=== PATIENT | female | born 1980 | race Caucasian/White ===

== ENCOUNTER 2020-07-01 17:53 | Emergency (ER) | payer SELFPAY ==
[2020-07-01] MEDS ORDERED: Thiamine 200 MG/2 ML MDV IVPUSH ONE (18:14)
[2020-07-01] MEDS ORDERED: Lactated Ringers 1,000 ML IV ONE (18:15)
[2020-07-01] MEDS ORDERED: Ondansetron 4 MG/2 ML SDV IVPUSH ONE (18:15)
--- NOTE | 2020-07-01 18:56 | EDM.PDOC ---
<Frandy Aleman - Last Filed: 07/01/20 18:48> ED HPI GENERAL MEDICAL PROBLEM - General Chief Complaint: Behavioral/Psych Stated Complaint: [facility] Time Seen by Provider: 07/01/20 18:48 - History of Present Illness INITIAL COMMENTS - FREE TEXT/NARRATIVE: 39-year-old female brought in by [facility]. The call was initially for an unresponsive female but she became more responsive but still somewhat confused when EMS arrived she smells grossly of EtOH. Patient admits to drinking quite a bit yesterday. Patient hurts all over. She is got open sores in her axilla and her groin and under her breasts. She has had surgery for these in the past secondary to infections. Patient really will not give much more of a history however she denies being . And she denies using any recreational drugs, however she says she wish she had. - Related Data Allergies Allergy/AdvReac Type Severity Reaction Status Date / Time No Known Allergies Allergy Verified 07/01/20 19:00 Past Medical History - Past Health History Medical/Surgical History: Denies Medical/Surgical History ED ROS GENERAL - Review of Systems Review Of Systems: See Below Reason Not Obtained: She is quite intoxicated and will not answer questions clearly Constitutional: Denies: Fever, Chills ED EXAM, GENERAL - Physical Exam Exam: See Below Exam Limited By: Intoxication General Appearance: No Apparent Distress, Lethargic Eye Exam: Bilateral Eye: Other (Sclera mildly injected otherwise no abnormalities) Ears: Normal External Exam, Normal Canal, Hearing Grossly Normal, Normal TMs, Other (Nonobstructing cerumen noted in the external canals) Nose: Normal Inspection, Normal Mucosa, No Blood Throat/Mouth: Other (Dry mucosa) Head: Atraumatic, Normocephalic, Other (Skin changes consistent with rosacea) Neck: Normal Inspection, Supple, Non-Tender, Full Range of Motion. No: Lymphadenopathy (L), Lymphadenopathy (R) Respiratory/Chest: No Respiratory Distress, Lungs Clear Cardiovascular: Regular Rate, Rhythm, No Edema, No Murmur GI/Abdominal: Normal Bowel Sounds, Soft, Other (Apparent tenderness with palpation nothing worsened with palpation no rebound or guarding) (Female) Exam: Other (Skin changes consistent with a varying degree of folliculitis) Back Exam: No: CVA Tenderness (L), CVA Tenderness (R) Extremities: No Pedal Edema Neurological: Other (Intoxicated or otherwise under the influence of something) Skin Exam: Other (She has multiple areas in the groin that look like folliculitis. Under the breast she has open wounds down to the adipose tissue. These are again seen in the axilla with significant scar tissue.) Course - Re-Assessments/Exams Free Text/Narrative Re-Assessment/Exam: 07/01/20 19:12 Labs and x-ray ordered results pending at this point change of shift further care and disposition per Dr. Gunderson Departure - Departure Disposition: Home, Self-Care 01 Clinical Impression: Alcohol intoxication - Discharge Information Referrals: PCP,Unknown [Ordering Only Provider] - Forms: ED Department Discharge Additional Instructions: You were brought to the ED by EMS after passing out. Work-up in the ER included several blood tests, 2 sets of blood cultures, a urinalysis, a urine test, a urine drug screen, a swab for the SA RS-CoV-2 virus, and a chest x-ray. Your work-up found your alcohol level to be substantially elevated at 0.39. For reference, that is almost 5 times the upper legal limit for driving. We strongly recommend that you abstain from alcohol. If you have difficulty in doing so, we recommend that you seek professional help. If any other problems, please do not hesitate to return to the ER. Sepsis Event Note (ED) - Evaluation Sepsis Screening Result: No Definite Risk <Omar Gunderson - Last Filed: 07/02/20 06:40> Course - Vital Signs Last Recorded V/S: Last Vital Signs Temp 36.4 C 07/01/20 18:02 Pulse 80 07/02/20 02:35 Resp 18 07/01/20 18:02 BP 124/76 07/01/20 18:02 Pulse Ox 97 07/02/20 02:35 - Orders/Labs/Meds Orders: Active Orders 24 hr Category Date Time Status Chest 1V Frontal [CR] Stat Exams 07/01/20 18:07 Taken CULTURE BLOOD [BC] Stat Lab 07/01/20 18:30 Received CULTURE BLOOD [BC] Stat Lab 07/01/20 18:45 Received Blood Culture x2 Reflex Set [OM.PC] Stat Oth 07/01/20 18:07 Ordered Labs: Laboratory Tests 07/01/20 07/01/20 07/01/20 Range/Units 18:30 18:30 18:30 WBC 12.01 H (3.98-10.04) K/mm3 RBC 4.88 (3.98-5.22) M/mm3 Hgb 13.2 (11.2-15.7) gm/dl Hct 40.8 (34.1-44.9) % MCV 83.6 (79.4-94.8) fl MCH 27.0 (25.6-32.2) pg MCHC 32.4 (32.2-35.5) g/dl RDW Std Deviation 44.4 (36.4-46.3) fL Plt Count 396 H (182-369) K/mm3 MPV 8.4 L (9.4-12.3) fl Neut % (Auto) 76.6 H (34.0-71.1) % Lymph % (Auto) 16.8 L (19.3-51.7) % [place] % (Auto) 6.0 (4.7-12.5) % Eos % (Auto) 0.2 L (0.7-5.8) Baso % (Auto) 0.2 (0.1-1.2) % Neut # (Auto) 9.20 H (1.56-6.13) K/mm3 Lymph # (Auto) 2.02 (1.18-3.74) K/mm3 [place] # (Auto) 0.72 H (0.24-0.36) K/mm3 Eos # (Auto) 0.03 L (0.04-0.36) K/mm3 Baso # (Auto) 0.02 (0.01-0.08) K/mm3 Manual Slide Review Abnormal smear Sodium 146 H (136-145) mEq/L Potassium 3.9 (3.5-5.1) mEq/L Chloride 110 H (98-107) mEq/L Carbon Dioxide 22 (21-32) mEq/L Anion Gap 17.9 H (5-15) BUN 9 (7-18) mg/dL Creatinine 1.1 H (0.55-1.02) mg/dL Est Cr Clr Drug Dosing 67.89 mL/min Estimated GFR (MDRD) 55 (>60) mL/min BUN/Creatinine Ratio 8.2 L (14-18) Glucose 97 (74-106) mg/dL Lactic Acid 4.4 H* (0.4-2.0) mmol/L Calcium 8.5 (8.5-10.1) mg/dL Total Bilirubin 0.2 (0.2-1.0) mg/dL AST 21 (15-37) U/L ALT 24 (14-59) U/L Alkaline Phosphatase 49 (46-116) U/L Troponin I < 0.017 (0.00-0.056) ng/mL Total Protein 8.1 (6.4-8.2) g/dl Albumin 3.3 L (3.4-5.0) g/dl Globulin 4.8 gm/dL Albumin/Globulin Ratio 0.7 L (1-2) Urine Color (Yellow) Urine Appearance (Clear) Urine pH (5.0-8.0) Ur Specific Castor (1.005-1.030) Urine Protein (Negative) Urine Glucose (UA) (Negative) Urine Ketones (Negative) Urine Occult Blood (Negative) Urine Nitrite (Negative) Urine Bilirubin (Negative) Urine Urobilinogen (0.2-1.0) Ur Leukocyte Esterase (Negative) Urine RBC (0-5) /hpf Urine WBC (0-5) /hpf Ur Squamous Epith Cells (0-5) /hpf Urine Bacteria (FEW) /hpf Urine Mucus (FEW) /hpf Urine HCG, Qual (NEGATIVE) Urine Opiates Screen (IWEPZU=902) Ur Buprenorphine Scrn (CUTOFF=10) Ur Oxycodone Screen (NKB4PP=909) Urine Methadone Screen (YDXVPC=748) Ur Propoxyphene Screen (ZVQKDZ=371) Ur Barbiturates Screen (VAEZUQ=091) Ur Tricyclics Screen (GZXKJO=975) Ur Phencyclidine Scrn (CUTOFF=25) Ur Amphetamine Screen (DLCOOS=606) U Methamphetamines Scrn (UIZFWE=393) U Benzodiazepines Scrn (PQQCPZ=354) U Cocaine Metab Screen (MPSIKV=577) U Marijuana (THC) Screen (CUTOFF=50) Ethyl Alcohol 0.39 (0.00) gm% SARS-CoV-2 RNA (BRENT) (NEGATIVE) 07/01/20 07/01/20 07/01/20 Range/Units 18:50 18:50 18:50 WBC (3.98-10.04) K/mm3 RBC (3.98-5.22) M/mm3 Hgb (11.2-15.7) gm/dl Hct (34.1-44.9) % MCV (79.4-94.8) fl MCH (25.6-32.2) pg MCHC (32.2-35.5) g/dl RDW Std Deviation (36.4-46.3) fL Plt Count (182-369) K/mm3 MPV (9.4-12.3) fl Neut % (Auto) (34.0-71.1) % Lymph % (Auto) (19.3-51.7) % [place] % (Auto) (4.7-12.5) % Eos % (Auto) (0.7-5.8) Baso % (Auto) (0.1-1.2) % Neut # (Auto) (1.56-6.13) K/mm3 Lymph # (Auto) (1.18-3.74) K/mm3 [place] # (Auto) (0.24-0.36) K/mm3 Eos # (Auto) (0.04-0.36) K/mm3 Baso # (Auto) (0.01-0.08) K/mm3 Manual Slide Review Sodium (136-145) mEq/L Potassium (3.5-5.1) mEq/L Chloride (98-107) mEq/L Carbon Dioxide (21-32) mEq/L Anion Gap (5-15) BUN (7-18) mg/dL Creatinine (0.55-1.02) mg/dL Est Cr Clr Drug Dosing mL/min Estimated GFR (MDRD) (>60) mL/min BUN/Creatinine Ratio (14-18) Glucose (74-106) mg/dL Lactic Acid (0.4-2.0) mmol/L Calcium (8.5-10.1) mg/dL Total Bilirubin (0.2-1.0) mg/dL AST (15-37) U/L ALT (14-59) U/L Alkaline Phosphatase (46-116) U/L Troponin I (0.00-0.056) ng/mL Total Protein (6.4-8.2) g/dl Albumin (3.4-5.0) g/dl Globulin gm/dL Albumin/Globulin Ratio (1-2) Urine Color Yellow (Yellow) Urine Appearance Clear (Clear) Urine pH 6.0 (5.0-8.0) Ur Specific Castor 1.015 (1.005-1.030) Urine Protein Negative (Negative) Urine Glucose (UA) Negative (Negative) Urine Ketones Negative (Negative) Urine Occult Blood 1+ H (Negative) Urine Nitrite Negative (Negative) Urine Bilirubin Negative (Negative) Urine Urobilinogen 0.2 (0.2-1.0) Ur Leukocyte Esterase Negative (Negative) Urine RBC 0-5 (0-5) /hpf Urine WBC 0-5 (0-5) /hpf Ur Squamous Epith Cells 0-5 (0-5) /hpf Urine Bacteria Few (FEW) /hpf Urine Mucus Moderate H (FEW) /hpf Urine HCG, Qual Negative (NEGATIVE) Urine Opiates Screen Presumptive positive H (PCESCF=368) Ur Buprenorphine Scrn Negative (CUTOFF=10) Ur Oxycodone Screen Negative (HEI8BA=949) Urine Methadone Screen Negative (LZVZZD=101) Ur Propoxyphene Screen Negative (ATBKGV=086) Ur Barbiturates Screen Negative (XSNERN=587) Ur Tricyclics Screen Negative (JSMYEN=942) Ur Phencyclidine Scrn Negative (CUTOFF=25) Ur Amphetamine Screen Negative (QRTONG=077) U Methamphetamines Scrn Negative (KJQNQF=671) U Benzodiazepines Scrn Negative (HGRWCM=389) U Cocaine Metab Screen Negative (OHPPVU=276) U Marijuana (THC) Screen Presumptive positive H (CUTOFF=50) Ethyl Alcohol (0.00) gm% SARS-CoV-2 RNA (BRENT) (NEGATIVE) 07/01/20 07/01/20 Range/Units 19:26 21:50 WBC (3.98-10.04) K/mm3 RBC (3.98-5.22) M/mm3 Hgb (11.2-15.7) gm/dl Hct (34.1-44.9) % MCV (79.4-94.8) fl MCH (25.6-32.2) pg MCHC (32.2-35.5) g/dl RDW Std Deviation (36.4-46.3) fL Plt Count (182-369) K/mm3 MPV (9.4-12.3) fl Neut % (Auto) (34.0-71.1) % Lymph % (Auto) (19.3-51.7) % [place] % (Auto) (4.7-12.5) % Eos % (Auto) (0.7-5.8) Baso % (Auto) (0.1-1.2) % Neut # (Auto) (1.56-6.13) K/mm3 Lymph # (Auto) (1.18-3.74) K/mm3 [place] # (Auto) (0.24-0.36) K/mm3 Eos # (Auto) (0.04-0.36) K/mm3 Baso # (Auto) (0.01-0.08) K/mm3 Manual Slide Review Sodium (136-145) mEq/L Potassium (3.5-5.1) mEq/L Chloride (98-107) mEq/L Carbon Dioxide (21-32) mEq/L Anion Gap (5-15) BUN (7-18) mg/dL Creatinine (0.55-1.02) mg/dL Est Cr Clr Drug Dosing mL/min Estimated GFR (MDRD) (>60) mL/min BUN/Creatinine Ratio (14-18) Glucose (74-106) mg/dL Lactic Acid 4.0 H* (0.4-2.0) mmol/L Calcium (8.5-10.1) mg/dL Total Bilirubin (0.2-1.0) mg/dL AST (15-37) U/L ALT (14-59) U/L Alkaline Phosphatase (46-116) U/L Troponin I (0.00-0.056) ng/mL Total Protein (6.4-8.2) g/dl Albumin (3.4-5.0) g/dl Globulin gm/dL Albumin/Globulin Ratio (1-2) Urine Color (Yellow) Urine Appearance (Clear) Urine pH (5.0-8.0) Ur Specific [place] (1.005-1.030) Urine Protein (Negative) Urine Glucose (UA) (Negative) Urine Ketones (Negative) Urine Occult Blood (Negative) Urine Nitrite (Negative) Urine Bilirubin (Negative) Urine Urobilinogen (0.2-1.0) Ur Leukocyte Esterase (Negative) Urine RBC (0-5) /hpf Urine WBC (0-5) /hpf Ur Squamous Epith Cells (0-5) /hpf Urine Bacteria (FEW) /hpf Urine Mucus (FEW) /hpf Urine HCG, Qual (NEGATIVE) Urine Opiates Screen (ELIPFJ=669) Ur Buprenorphine Scrn (CUTOFF=10) Ur Oxycodone Screen (EMZ9ON=522) Urine Methadone Screen (CPHIDB=609) Ur Propoxyphene Screen (OBUJOJ=513) Ur Barbiturates Screen (HBTRET=189) Ur Tricyclics Screen (PXBLXV=098) Ur Phencyclidine Scrn (CUTOFF=25) Ur Amphetamine Screen (FXQRBF=582) U Methamphetamines Scrn (ZUOTEQ=982) U Benzodiazepines Scrn (TLKAUZ=266) U Cocaine Metab Screen (JIDWIZ=063) U Marijuana (THC) Screen (CUTOFF=50) Ethyl Alcohol (0.00) gm% SARS-CoV-2 RNA (BRENT) Negative (NEGATIVE) Meds: Medications Discontinued Medications Generic Name Dose Route Start Last Admin Trade Name Freq PRN Reason Stop Dose Admin Folic Acid 1 mg 07/02/20 18:10 Folic Acid IV 07/02/20 18:11 ONETIME ONE Lactated Ringer's 1,000 mls @ 999 mls/hr 07/01/20 18:15 07/01/20 18:42 Ringers, Lactated IV 07/01/20 19:15 999 mls/hr .BOLUS ONE Administration Sodium Chloride 1,000 mls @ 150 mls/hr 07/01/20 23:15 Normal Saline IV ASDIRECTED [facility] Ondansetron HCl 4 mg 07/01/20 18:15 07/01/20 18:42 Zofran IVPUSH 07/01/20 18:16 4 mg ONETIME ONE Administration Ondansetron HCl 4 mg 07/02/20 03:36 07/02/20 03:46 Zofran Odt PO 07/02/20 03:37 4 mg ONETIME ONE Administration Ondansetron HCl Confirm 07/02/20 03:38 07/02/20 03:46 Zofran Odt Administered 07/02/20 03:39 Not Given Dose 4 mg .ROUTE .STK-MED ONE Thiamine HCl 100 mg 07/01/20 18:14 07/01/20 18:42 Vitamin B-1 IVPUSH 07/01/20 18:15 100 mg ONETIME ONE Administration - Re-Assessments/Exams Free Text/Narrative Re-Assessment/Exam: 07/01/20 20:[address] Aleman. Portable chest radiograph reviewed. The cardiac silhouette is at the upper limits of normal. No pulmonary vascular congestion. No pleural effusions seen on this AP view. No focal infiltrate. No pneumothorax. Formal read per the Radiologist pending. The patient's CBC is remarkable for leukocytosis of 12.01, and thrombocytosis of 396,000, with the remainder of her CBC being unremarkable. Her CMP is remarkable for slight hypernatremia of 146, and an anion gap slightly elevated at 17.9, but with a bicarbonate normal at 22. Her Cr is slightly elevated at 1.1 with a BUN normal at 9, and the remainder of her CMP being unremarkable. Her lactic acid level is elevated at 4.4. Her EtOH level is significantly elevated at 0.39. Her urinalysis is unremarkable. Her urine test is negative. Her urine drug screen is positive for both opiates and marijuana. As the patient's bicarbonate level is normal, she does not actually have lactic acidosis. Her elevated lactic acid level is most likely due to her alcoholism. There is no suggestion that she is septic. The opiates in the patient's drug screen is likely due to the Dilaudid given by EMS. My plan for the patient will be to keep her here in the ED overnight to allow her to sober up, then discharged home in the morning. 07/01/20 23:08 The patient's repeat/reflex lactic acid level is elevated at 4.0. Her swab for the SARS-CoV-2 virus returned negative. 07/02/20 06:35 The patient slept all night. She is now lucid fit for discharge. She states that her mother lives here in [place]; she and Pepper RN will make arrangements for the patient's mother to come and pick her up. Departure - Departure Time of Disposition: 06:36 Condition: Good - Discharge Information *PRESCRIPTION DRUG MONITORING PROGRAM REVIEWED*: Not Applicable *COPY OF PRESCRIPTION DRUG MONITORING REPORT IN PATIENT DARIUSZ: Not Applicable Sepsis Event Note (ED) - Focused Exam Vital Signs: Vital Signs Pulse Pulse Ox 07/02/20 02:35 80 97 07/01/20 22:29 83 95
[2020-07-01] MEDS ORDERED: Sodium Chloride 0.9% 1,000 ML IV SCH (23:15)
[2020-07-02] MEDS ORDERED: Ondansetron 4 MG Tab.DIS PO ONE (03:36)
[2020-07-02] MEDS ORDERED: Ondansetron 4 MG Tab.DIS ONE (03:38)
--- NOTE | 2020-07-02 11:19 | CR ---
Chest: Portable upright view of the chest was obtained. Comparison: No prior chest imaging is available. Heart size and mediastinum are normal. Lungs are clear with no acute parenchymal change. No gross bony abnormality is appreciated. Impression: 1. Nothing acute is seen on portable chest x-ray. Diagnostic code #1
[2020-07-02] MEDS ORDERED: Folic Acid 50 MG/10 ML MDV IV ONE (18:10)
== END 2020-07-02 11:17 | disposition home or self-care (01) ==
LOC: JD.ED 17:53
DX: F10.129 Alcohol abuse with intoxication, unspecified (principal); Y90.8 Blood alcohol level of 240 mg/100 ml or more
CPT/HCPCS: 36415; 71045; 80053; 80179; 80306; 81001; 81025; 83605; 84484; 85025; 87040; 87635; 96374; 96375; 99285; A9270; J2405; J3411; J7120; 99283; U0002